=== PATIENT | male | born 1960 | race Caucasian/White ===

== ENCOUNTER → 2016-10-28 | Outpatient (REF) | payer OTHER ==
[2016-10-28 13:53] LABS: ALBUMIN/GLOBULIN RATIO 1.38 (1.00-1.93); ALKALINE PHOSPHATASE 75 U/L (45-117); ALT/SGPT 46 U/L (12-78); ANION GAP 9 MEQ/L (8-16); AST/SGOT 13 U/L (15-37); BILIRUBIN,TOTAL 0.6 MG/DL (0.2-1.0); BLOOD UREA NITROGEN 16 MG/DL (7-18); CALCIUM LEVEL 9.5 MG/DL (8.5-10.1); CARBON DIOXIDE LEVEL 30 MEQ/L (21-32); CHLORIDE LEVEL 104 MEQ/L (98-107); CHOLESTEROL LEVEL 293 MG/DL (<200); CREATININE FOR GFR 0.97 MG/DL (0.70-1.30); GLOMERULAR FILTRATION RATE > 60.0 (>56); GLUCOSE, FASTING 109 MG/DL (70-105); POTASSIUM SERUM 4.7 MEQ/L (3.5-5.1); SODIUM LEVEL 143 MEQ/L (136-145); TOTAL PROTEIN 6.9 GM/DL (6.4-8.2); TRIGLYCERIDES LEVEL 257 MG/DL (<150)
== END | disposition home or self-care (01) ==
LOC: M SFHCADAM 08:13
PROVIDERS: ATTEND Family Medicine
DX: E78.5 Hyperlipidemia, unspecified (principal); Z12.11 Encounter for screening for malignant neoplasm of colon
CPT/HCPCS: 80053; 80061; G0103

== ENCOUNTER → 2017-09-11 | Outpatient (REF) | payer OTHER ==
[2017-09-11 13:04] LABS: ALBUMIN/GLOBULIN RATIO 1.33 (1.00-1.93); ALKALINE PHOSPHATASE 87 U/L (45-117); ALT/SGPT 31 U/L (12-78); ANION GAP 8 MEQ/L (8-16); AST/SGOT 18 U/L (7-37); BILIRUBIN,TOTAL 0.8 MG/DL (0.2-1.0); BLOOD UREA NITROGEN 20 MG/DL (7-18); CARBON DIOXIDE LEVEL 27 MEQ/L (21-32); CHLORIDE LEVEL 106 MEQ/L (98-107); CHOLESTEROL LEVEL 282 MG/DL (<200); CREATININE FOR GFR 0.85 MG/DL (0.70-1.30); GLOMERULAR FILTRATION RATE > 60.0 (>56); GLUCOSE, FASTING 97 MG/DL (70-105); POTASSIUM SERUM 4.4 MEQ/L (3.5-5.1); SODIUM LEVEL 141 MEQ/L (136-145); TRIGLYCERIDES LEVEL 242 MG/DL (<150)
== END ==
LOC: M SFHCPLAZ 07:52
PROVIDERS: ATTEND Family Medicine
DX: E78.5 Hyperlipidemia, unspecified (principal); R73.01 Impaired fasting glucose; Z12.5 Encounter for screening for malignant neoplasm of prostate

== ENCOUNTER → 2020-01-05 | Outpatient (REF) | payer OTHER ==
[2020-01-05 12:57] LABS: APPEARANCE, URINE MANUAL CLEAR (CLEAR); COLOR, URINE MANUAL LT YELLOW (YELLOW)
[2020-01-05 12:58] LABS: BILIRUBIN, URINE MANUAL NEGATIVE (NEGATIVE); BLOOD URINE MANUAL NEGATIVE (NEGATIVE); GLUCOSE, URINE (UA) MANUAL NEGATIVE (NEGATIVE); KETONE, URINE MANUAL NEGATIVE (NEGATIVE); LEUKOCYTE ESTERASE, URINE MAN NEGATIVE (NEGATIVE); NITRITE, URINE MANUAL NEGATIVE (NEGATIVE); PROTEIN, URINE MANUAL NEGATIVE (NEGATIVE); SPECIFIC GRAVITY,URINE MANUAL 1.005 (1.002-1.035); UROBILINOGEN, URINE MANUAL NORMAL (NORMAL)
[2020-01-05 12:59] LABS: HEMATOCRIT 43.6 % (42.0-52.0); HEMOGLOBIN 14.7 g/dl (13.5-17.5); MEAN CORPUSCULAR HEMOGLOBIN 30.6 pg (27.0-33.0); MEAN CORPUSCULAR HGB CONC 33.7 g/dl (32.0-36.5); MEAN CORPUSCULAR VOLUME 90.8 fl (80.0-96.0); PLATELET COUNT, AUTOMATED 232 10^3/uL (150-450); WHITE BLOOD COUNT 8.1 10^3/uL (4.0-10.0)
[2020-01-05 13:31] LABS: ALT/SGPT 40 U/L (12-78); BILIRUBIN,TOTAL 0.7 MG/DL (0.2-1.0); BLOOD UREA NITROGEN 13 MG/DL (7-18); CALCIUM LEVEL 9.8 MG/DL (8.8-10.2); CARBON DIOXIDE LEVEL 30 MEQ/L (21-32); CHLORIDE LEVEL 104 MEQ/L (98-107); CHOLESTEROL LEVEL 286 MG/DL (<200); CHOLESTEROL RISK RATIO 6.651 (<5); CREATININE FOR GFR 0.95 MG/DL (0.70-1.30); GLOMERULAR FILTRATION RATE > 60.0 (>49); GLUCOSE, FASTING 109 MG/DL (70-100); HDL CHOLESTEROL 43 MG/DL (>40); LDL CHOLESTEROL 184 MG/DL (<100); NON-HDL-C 243 MG/DL; POTASSIUM SERUM 4.6 MEQ/L (3.5-5.1); SODIUM LEVEL 140 MEQ/L (136-145); TOTAL PROTEIN 7.2 GM/DL (6.4-8.2); TRIGLYCERIDES LEVEL 296 MG/DL (<150)
[2020-01-05 13:42] LABS: HEMOGLOBIN A1c 6.2 %
== END ==
LOC: M SFHCADAM 10:27
PROVIDERS: ATTEND Family Medicine
DX: R10.9 Unspecified abdominal pain (principal); E78.5 Hyperlipidemia, unspecified; R73.01 Impaired fasting glucose; Z12.5 Encounter for screening for malignant neoplasm of prostate

== ENCOUNTER → 2020-12-14 | Outpatient (REF) | payer OTHER ==
[2020-12-14 13:02] LABS: ALBUMIN 4.1 GM/DL (3.2-5.2); ALT/SGPT 39 U/L (12-78); BILIRUBIN,TOTAL 0.6 MG/DL (0.2-1.0); BLOOD UREA NITROGEN 20 MG/DL (7-18); CALCIUM LEVEL 9.5 MG/DL (8.8-10.2); CARBON DIOXIDE LEVEL 28 MEQ/L (21-32); CHLORIDE LEVEL 104 MEQ/L (98-107); CHOLESTEROL LEVEL 320 MG/DL (<200); CHOLESTEROL RISK RATIO 8.421 (<5); CREATININE FOR GFR 0.85 MG/DL (0.70-1.30); GLOMERULAR FILTRATION RATE > 60.0 (>49); GLUCOSE, FASTING 98 MG/DL (70-100); HDL CHOLESTEROL 38 MG/DL (>40); LDL CHOLESTEROL 230 MG/DL (<100); NON-HDL-C 282 MG/DL; POTASSIUM SERUM 4.2 MEQ/L (3.5-5.1); SODIUM LEVEL 137 MEQ/L (136-145); TRIGLYCERIDES LEVEL 262 MG/DL (<150)
[2020-12-14 13:14] LABS: HEMOGLOBIN A1c 5.7 %
== END ==
LOC: M SFHCADAM 11:11
PROVIDERS: ATTEND Family Medicine
DX: E78.5 Hyperlipidemia, unspecified (principal); R73.01 Impaired fasting glucose; Z12.5 Encounter for screening for malignant neoplasm of prostate

== ENCOUNTER → 2021-02-26 | Outpatient (REF) | payer OTHER | LOC: M LAB REF 13:44 | PROVIDERS: ATTEND Physician Assistant | DX: L81.4 Other melanin hyperpigmentation (principal) ==

== ENCOUNTER → 2022-04-04 | Outpatient (CLI) | payer BC, OTHER ==
[2022-04-04 13:34] LABS: HEMOGLOBIN 14.9 g/dl (13.5-17.5); MEAN CORPUSCULAR HEMOGLOBIN 29.9 pg (27.0-33.0); MEAN CORPUSCULAR HGB CONC 33.1 g/dl (32.0-36.5); MEAN CORPUSCULAR VOLUME 90.2 fl (80.0-96.0); PLATELET COUNT, AUTOMATED 239 10^3/uL (150-450); RED BLOOD COUNT 4.99 10^6/uL (4.30-6.10); WHITE BLOOD COUNT 6.3 10^3/uL (4.0-10.0)
[2022-04-04 13:43] LABS: ALBUMIN 4.2 GM/DL (3.2-5.2); ALT/SGPT 36 U/L (12-78); BILIRUBIN,TOTAL 0.6 MG/DL (0.2-1.0); BLOOD UREA NITROGEN 17 MG/DL (7-18); CALCIUM LEVEL 10.2 MG/DL (8.8-10.2); CARBON DIOXIDE LEVEL 29 MEQ/L (21-32); CHLORIDE LEVEL 106 MEQ/L (98-107); CHOLESTEROL LEVEL 287 MG/DL (<200); CHOLESTEROL RISK RATIO 6.239 (<5); CREATININE FOR GFR 1.02 MG/DL (0.70-1.30); GLOMERULAR FILTRATION RATE > 60.0 (>49); GLUCOSE, FASTING 108 MG/DL (70-100); HDL CHOLESTEROL 46 MG/DL (>40); LDL CHOLESTEROL 204 MG/DL (<100); NON-HDL-C 241 MG/DL; POTASSIUM SERUM 4.9 MEQ/L (3.5-5.1); SODIUM LEVEL 139 MEQ/L (136-145); TRIGLYCERIDES LEVEL 183 MG/DL (<150)
[2022-04-04 13:57] LABS: HEMOGLOBIN A1c 5.8 %
== END ==
LOC: M ADAMS 08:27
PROVIDERS: ATTEND Family Medicine
DX: R10.9 Unspecified abdominal pain (principal); E78.5 Hyperlipidemia, unspecified; R73.01 Impaired fasting glucose; Z12.5 Encounter for screening for malignant neoplasm of prostate

== ENCOUNTER → 2022-06-18 | Outpatient (CLI) | payer BC, OTHER | LOC: M SOG 07:52 | PROVIDERS: ATTEND Orthopaedic Surgery | DX: M25.512 Pain in left shoulder (principal) ==

== ENCOUNTER → 2022-08-21 | Outpatient (CLI) | payer BC, OTHER ==
[~2022-08-21] MED LIST: ISOVUE-300 61% 50ML VIAL As Ordered ONE; LIDOCAINE 1% MDV 20ML VIAL As Ordered ONE; PROHANCE 279.3MG/ML 5ML VIAL As Ordered ONE
== END ==
LOC: M RADPRO 06:31
PROVIDERS: ATTEND Orthopaedic Surgery
DX: S46.012A Strain of muscle(s) and tendon(s) of the rotator cuff of left shoulder, initial encounter (principal); X58.XXXA Exposure to other specified factors, initial encounter; Y92.9 Unspecified place or not applicable
CPT/HCPCS: 23350; 73223; 77002; A9576

== ENCOUNTER → 2023-02-04 | Outpatient (REF) | payer OTHER ==
[2023-02-04 13:02] LABS: ALBUMIN 4.1 G/DL (3.2-5.2); ALKALINE PHOSPHATASE 75 U/L (46-116); ALT/SGPT 34 U/L (7.0-40); AST/SGOT 24 U/L (<34); BILIRUBIN,TOTAL 0.5 MG/DL (0.3-1.2); BLOOD UREA NITROGEN 20 MG/DL (9-23); CALCIUM LEVEL 9.5 MG/DL (8.3-10.6); CARBON DIOXIDE LEVEL 30 MMOL/L (20-31); CHLORIDE LEVEL 105 MMOL/L (98-107); CHOLESTEROL LEVEL 308 MG/DL (<200); CHOLESTEROL RISK RATIO 6.93 (<5); CREATININE FOR GFR 0.87 MG/DL (0.70-1.30); GLOMERULAR FILTRATION RATE > 60.0 (>49); GLUCOSE, FASTING 112 MG/DL (74-106); HDL CHOLESTEROL 44.4 MG/DL (>40); LDL CHOLESTEROL 214.4 MG/DL (<100); NON-HDL-C 263.6 MG/DL; POTASSIUM SERUM 4.8 MMOL/L (3.5-5.1); SODIUM LEVEL 140 MMOL/L (136-145); TRIGLYCERIDES LEVEL 246 MG/DL (<150)
== END ==
LOC: M SFHCADAM 08:22
PROVIDERS: ATTEND Family Medicine
DX: E78.5 Hyperlipidemia, unspecified (principal); S30.861A Insect bite (nonvenomous) of abdominal wall, initial encounter; W57.XXXA Bitten or stung by nonvenomous insect and other nonvenomous arthropods, initial encounter

== ENCOUNTER → 2023-05-28 | Outpatient (REF) | payer OTHER ==
[2023-05-28 13:17] LABS: ALBUMIN 3.9 G/DL (3.2-5.2); ALKALINE PHOSPHATASE 71 U/L (46-116); ALT/SGPT 31 U/L (7.0-40); AST/SGOT 19 U/L (<34); BILIRUBIN,TOTAL 0.8 MG/DL (0.3-1.2); BLOOD UREA NITROGEN 20 MG/DL (9-23); CALCIUM LEVEL 9.1 MG/DL (8.3-10.6); CARBON DIOXIDE LEVEL 29 MMOL/L (20-31); CHLORIDE LEVEL 104 MMOL/L (98-107); CHOLESTEROL LEVEL 163 MG/DL (<200); CHOLESTEROL RISK RATIO 3.93 (<5); CREATININE FOR GFR 0.87 MG/DL (0.70-1.30); GLOMERULAR FILTRATION RATE > 60.0 (>49); GLUCOSE, FASTING 105 MG/DL (74-106); HDL CHOLESTEROL 41.4 MG/DL (>40); LDL CHOLESTEROL 78.8 MG/DL (<100); NON-HDL-C 121.6 MG/DL; POTASSIUM SERUM 4.4 MMOL/L (3.5-5.1); SODIUM LEVEL 141 MMOL/L (136-145); TOTAL PROTEIN 6.5 G/DL (5.7-8.2); TRIGLYCERIDES LEVEL 214 MG/DL (<150)
[2023-05-28 13:32] LABS: HEMOGLOBIN A1c 5.8 % (4.0-6.0)
== END ==
LOC: M SFHCADAM 07:15
PROVIDERS: ATTEND Family Medicine
DX: E78.49 Other hyperlipidemia (principal); R73.01 Impaired fasting glucose; Z12.5 Encounter for screening for malignant neoplasm of prostate

== ENCOUNTER → 2023-09-18 | Outpatient (REF) | payer BC, OTHER ==
[2023-09-18 17:03] LABS: HEMATOCRIT 42.1 % (42.0-52.0); HEMOGLOBIN 14.4 g/dl (13.5-17.5); MEAN CORPUSCULAR HEMOGLOBIN 30.3 pg (27.0-33.0); MEAN CORPUSCULAR HGB CONC 34.2 g/dl (32.0-36.5); MEAN CORPUSCULAR VOLUME 88.4 fl (80.0-96.0); PLATELET COUNT, AUTOMATED 238 10^3/uL (150-450); RED BLOOD COUNT 4.76 10^6/uL (4.30-6.10); WHITE BLOOD COUNT 7.6 10^3/uL (4.0-10.0)
[2023-09-18 17:19] LABS: ALBUMIN 4.2 G/DL (3.2-5.2); ALKALINE PHOSPHATASE 74 U/L (46-116); ALT/SGPT 30 U/L (7.0-40); AST/SGOT 22 U/L (<34); BILIRUBIN,TOTAL 0.8 MG/DL (0.3-1.2); BLOOD UREA NITROGEN 17 MG/DL (9-23); CALCIUM LEVEL 9.7 MG/DL (8.3-10.6); CARBON DIOXIDE LEVEL 26 MMOL/L (20-31); CHLORIDE LEVEL 102 MMOL/L (98-107); CHOLESTEROL LEVEL 300 MG/DL (<200); CREATININE FOR GFR 0.86 MG/DL (0.70-1.30); FREE T4 1.16 NG/DL (0.89-1.76); GLOMERULAR FILTRATION RATE > 60.0 (>49); GLUCOSE, FASTING 97 MG/DL (74-106); LDL CHOLESTEROL 198.6 MG/DL (<100); POTASSIUM SERUM 3.9 MMOL/L (3.5-5.1); SODIUM LEVEL 137 MMOL/L (136-145); THYROID STIMULATING HORMONE 1.594 uIU/ML (0.55-4.78); TOTAL PROTEIN 6.7 G/DL (5.7-8.2); TRIGLYCERIDES LEVEL 322 MG/DL (<150)
[2023-09-18 17:22] LABS: HEMOGLOBIN A1c 5.8 % (4.0-6.0)
== END ==
LOC: M SFHCADAM 13:33
PROVIDERS: ATTEND Family Medicine
DX: R73.01 Impaired fasting glucose (principal); E78.49 Other hyperlipidemia; I10 Essential (primary) hypertension

== ENCOUNTER → 2023-10-13 | Outpatient (CLI) | payer BC, OTHER | LOC: M RAD 10:27 | PROVIDERS: ATTEND Ophthalmology | DX: H53.129 Transient visual loss, unspecified eye (principal) ==

== ENCOUNTER 2023-11-03 06:28 | Day surgery (SDC) | payer BC, OTHER ==
[~2023-11-03] VITALS: Ht 170.2 cm; Wt 95.5 kg
[~2023-11-03 06:28] MED LIST changes: -ISOVUE-300 61% 50ML VIAL As Ordered ONE; -LIDOCAINE 1% MDV 20ML VIAL As Ordered ONE; +LOSA50TA28 PO; +NS 1,000 ML IV ONE; +OMEP1CAP73 PO; +PRAV20TA2 PO; -PROHANCE 279.3MG/ML 5ML VIAL As Ordered ONE; +VIT1TABL25 PO; +VITMTA PO
[2023-11-03] MEDS ORDERED: propofoL 500 MG/50 ML VIAL As Ordered ONE (08:02)
[2023-11-03] MEDS ORDERED: LIDOCAINE 2% 100MG/5ML SDV (FOR ANES.) As Ordered ONE (08:02)
[2023-11-03 08:10] VITALS: BP 115/79; O2SAT 96
== END 2023-11-03 08:25 | disposition home or self-care (01) ==
LOC: M OPP 06:28
PROVIDERS: ATTEND Internal Medicine Gastroenterology
DX: Z12.11 Encounter for screening for malignant neoplasm of colon (principal); D12.5 Benign neoplasm of sigmoid colon; K57.30 Diverticulosis of large intestine without perforation or abscess without bleeding; K64.8 Other hemorrhoids; Z79.02 Long term (current) use of antithrombotics/antiplatelets; Z79.899 Other long term (current) drug therapy

== ENCOUNTER → 2024-03-29 | Outpatient (CLI) | payer BC ==
[~2024-03-29] MED LIST changes: -NS 1,000 ML IV ONE
[2024-03-29 12:42] LABS: CPK CREATINE PHOSPHOKINASE 145 U/L (46-171)
[2024-03-29 12:44] LABS: ALBUMIN 3.9 G/DL (3.2-5.2); ALKALINE PHOSPHATASE 68 U/L (46-116); ALT/SGPT 25 U/L (7.0-40); AST/SGOT 15 U/L (<34); BILIRUBIN,TOTAL 0.7 MG/DL (0.3-1.2); BLOOD UREA NITROGEN 19 MG/DL (9-23); CALCIUM LEVEL 9.2 MG/DL (8.3-10.6); CARBON DIOXIDE LEVEL 28 MMOL/L (20-31); CHLORIDE LEVEL 107 MMOL/L (98-107); CHOLESTEROL LEVEL 233 MG/DL (<200); CHOLESTEROL RISK RATIO 5.39 (<5); CREATININE FOR GFR 0.87 MG/DL (0.70-1.30); GLOMERULAR FILTRATION RATE > 60.0 (>49); GLUCOSE, FASTING 105 MG/DL (74-106); HDL CHOLESTEROL 43.2 MG/DL (>40); LDL CHOLESTEROL 158.6 MG/DL (<100); NON-HDL-C 189.8 MG/DL; POTASSIUM SERUM 4.2 MMOL/L (3.5-5.1); SODIUM LEVEL 140 MMOL/L (136-145); TOTAL PROTEIN 6.3 G/DL (5.7-8.2); TRIGLYCERIDES LEVEL 156 MG/DL (<150)
== END ==
LOC: M PLALAB 10:33
PROVIDERS: ATTEND Family Medicine
DX: M79.10 Myalgia, unspecified site (principal); T46.6X5A Adverse effect of antihyperlipidemic and antiarteriosclerotic drugs, initial encounter

== ENCOUNTER → 2024-08-06 | Outpatient (CLI) | payer BC | LOC: M ADAMS 15:31 | PROVIDERS: ATTEND Family Medicine | DX: M17.12 Unilateral primary osteoarthritis, left knee (principal) ==

== ENCOUNTER → 2024-09-22 | Outpatient (REF) | payer BC ==
[2024-09-22 13:45] LABS: ALBUMIN 3.7 G/DL (3.2-5.2); ALKALINE PHOSPHATASE 71 U/L (40-129); ALT/SGPT 23 U/L (7.0-40); AST/SGOT 17 U/L (<34); BILIRUBIN,TOTAL 0.8 MG/DL (0.3-1.2); BLOOD UREA NITROGEN 17 MG/DL (9-23); CALCIUM LEVEL 9.6 MG/DL (8.3-10.6); CARBON DIOXIDE LEVEL 27 MMOL/L (20-31); CHLORIDE LEVEL 105 MMOL/L (98-107); CHOLESTEROL LEVEL 286 MG/DL (<200); CHOLESTEROL RISK RATIO 6.79 (<5); CREATININE FOR GFR 0.92 MG/DL (0.70-1.30); GLOMERULAR FILTRATION RATE > 60.0 (>49); GLUCOSE, FASTING 92 MG/DL (74-106); HDL CHOLESTEROL 42.1 MG/DL (>40); LDL CHOLESTEROL 211.5 MG/DL (<100); NON-HDL-C 243.9 MG/DL; POTASSIUM SERUM 4.5 MMOL/L (3.5-5.1); SODIUM LEVEL 140 MMOL/L (136-145); TOTAL PROTEIN 6.8 G/DL (5.7-8.2); TRIGLYCERIDES LEVEL 162 MG/DL (<150)
== END ==
LOC: M SFHCADAM 09:59
PROVIDERS: ATTEND Family Medicine
DX: E78.49 Other hyperlipidemia (principal)

== ENCOUNTER 2024-12-19 12:34 | Emergency (ER) | payer MEDICARE, BC ==
[~2024-12-19] VITALS: Ht 170.2 cm; Wt 89.9 kg
[2024-12-19] MEDS: LIDOCAINE 1% SDV 5ML VIAL DILUENT ONE (15:47)
[2024-12-19] MEDS: cefTRIAXone SOD 2GM VIAL IM ONE (15:48)
[2024-12-19] MEDS: BOOSTRIX VACCINE (TETANUS/DIPHTH/ACEL. PERTUSSIS) 0.5ML SYR IM ONE (15:52)
[2024-12-19] MEDS: LIDOCAINE 1% MDV 20ML VIAL SC ONE (15:55)
[2024-12-19] MEDS ORDERED: CEPH500C PO (16:54)
[2024-12-19 17:03] VITALS: BP 160/79; TEMP 97.7; O2SAT 96
== END 2024-12-19 17:05 | disposition home or self-care (01) ==
LOC: M ED 12:34
DX: S62.635B Displaced fracture of distal phalanx of left ring finger, initial encounter for open fracture (principal); I10 Essential (primary) hypertension; F17.210 Nicotine dependence, cigarettes, uncomplicated; Z23 Encounter for immunization; Z79.2 Long term (current) use of antibiotics; Z79.810 Long term (current) use of selective estrogen receptor modulators (SERMs); Z79.899 Other long term (current) drug therapy
CPT/HCPCS: 11730; 12002; 13132; 29130; 73140; 90471; 90715; 96372; 99283; J0696

== ENCOUNTER → 2025-01-03 | Outpatient (REF) | payer MEDICARE, BC ==
[~2025-01-03] MED LIST changes: +CEPH500C PO
[2025-01-03 17:47] LABS: BASO # 0.1 10^3/uL (0.0-0.2); BASO % 0.5 % (0.0-1.0); BLOOD UREA NITROGEN 20 MG/DL (9-23); CARBON DIOXIDE LEVEL 27 MMOL/L (20-31); CHLORIDE LEVEL 105 MMOL/L (98-107); CREATININE FOR GFR 1.11 MG/DL (0.70-1.30); EOS # 0.1 10^3/uL (0.0-0.5); EOS % 0.7 % (0.0-3.0); GLOMERULAR FILTRATION RATE > 60.0 (>49); GLUCOSE, FASTING 95 MG/DL (74-106); HEMATOCRIT 40.1 % (42.0-52.0); HEMOGLOBIN 13.2 g/dl (13.5-17.5); LYMPH # 1.8 10^3/uL (1.5-5.0); LYMPH % 17.8 % (24.0-44.0); MEAN CORPUSCULAR HEMOGLOBIN 30.3 pg (27.0-33.0); MEAN CORPUSCULAR HGB CONC 32.9 g/dl (32.0-36.5); MEAN CORPUSCULAR VOLUME 92.2 fl (80.0-96.0); MONO # 0.7 10^3/uL (0.0-0.8); MONO % 6.9 % (2.0-8.0); NEUTROPHILS # 7.4 10^3/uL (1.5-8.5); NEUTROPHILS % 73.8 % (36.0-66.0); PLATELET COUNT, AUTOMATED 268 10^3/uL (150-450); POTASSIUM SERUM 4.8 MMOL/L (3.5-5.1); RED BLOOD COUNT 4.35 10^6/uL (4.30-6.10); SODIUM LEVEL 140 MMOL/L (136-145)
== END ==
LOC: M SFHCADAM 13:30
PROVIDERS: ATTEND Physician Assistant
DX: Z01.818 Encounter for other preprocedural examination (principal)

== ENCOUNTER → 2025-06-28 | Outpatient (REF) | payer MEDICARE, BC ==
[~2025-06-28] MED LIST changes: -PRAV20TA2 PO; +PRAV20TA78 PO
[2025-06-28 15:17] LABS: ALT/SGPT 24 U/L (7.0-40); AST/SGOT 22 U/L (<34); CALCIUM LEVEL 9.4 MG/DL (8.3-10.6); CARBON DIOXIDE LEVEL 28 MMOL/L (20-31); CHLORIDE LEVEL 104 MMOL/L (98-107); CHOLESTEROL LEVEL 299 MG/DL (<200); CHOLESTEROL RISK RATIO 7.49 (<5); CREATININE FOR GFR 0.90 MG/DL (0.70-1.30); GLOMERULAR FILTRATION RATE > 90.0 (>49); LDL CHOLESTEROL 203.5 MG/DL (<100); NON-HDL-C 259.1 MG/DL; POTASSIUM SERUM 4.4 MMOL/L (3.5-5.1); SODIUM LEVEL 139 MMOL/L (136-145); TRIGLYCERIDES LEVEL 278 MG/DL (<150)
[2025-06-28 15:47] LABS: PSA SCREENING 4.24 NG/ML (< 4.00)
[2025-06-28 19:04] LABS: ESTIMATED AVERAGE GLUCOSE 126.0 MG/DL (60-110)
== END ==
LOC: M SFHCADAM 08:28
PROVIDERS: ATTEND Family Medicine
DX: Z12.5 Encounter for screening for malignant neoplasm of prostate (principal); R73.01 Impaired fasting glucose; E78.49 Other hyperlipidemia
CPT/HCPCS: 80053; 80061; 83036; G0103

== ENCOUNTER → 2025-07-19 | Outpatient (CLI) | payer MEDICARE, BC | LOC: M PLAIMG 06:41 | PROVIDERS: ATTEND Physician Assistant | DX: J32.8 Other chronic sinusitis (principal) ==

== ENCOUNTER → 2025-08-19 | Outpatient (CLI) | payer MEDICARE, BC | LOC: M PLALAB 15:18 | PROVIDERS: ATTEND Urology | DX: R97.20 Elevated prostate specific antigen [PSA] (principal) ==